=== PATIENT | male | born 1965 | race Caucasian/White ===

== ENCOUNTER 2019-08-28 09:05 | Emergency (ER) | payer BC, OTHER ==
[2019-08-28 09:18] VITALS: BP 135/105; PULSE 88; TEMP 97.5; BMI 29.6
[2019-08-28] MEDS ORDERED: DIPHTH,PERTUSS(ACELL),TET 0.5 ML DISP.SYRIN IM ONE ×2 (10:25→11:03)
--- NOTE | 2019-08-28 10:41 | PDOC ---
History of Present Illness - General Chief Complaint: Injury Stated Complaint: LT HAND INJURY Time Seen by Provider: 08/28/19 09:46 History Source: Patient - History of Present Illness Initial Comments: 08/28/19 10:24 53M w/hx HTN p/w fish hook injury to L 2nd digit. He reports packing to leave for vacation when he accidentally impaled his finger on a clean, barbed fish hook. He attempted to remove the hook himself without success. He does not recall his last tetanus vaccination. Past History - Medical History Allergies/Adverse Reactions: Allergies Allergy/AdvReac Type Severity Reaction Status Date / Time No Known Allergies Allergy Unverified 03/05/15 15:35 Home Medications: Ambulatory Orders Cephalexin [Keflex] 500 mg PO BID 7 Days #14 capsule 08/28/19 - Psycho-Social/Smoking History Smoking History: Never smoked Have you smoked in the past 12 months: No - Substance Abuse Hx (Audit-C & DAST Scrn) How often the patient has a drink containing alcohol: Never Score: In Men: 4 or > Positive; In Women: 3 or > Positive: 0 Screen Result (Pos requires Nsg. Audit-10AR): Negative In the last yr the pt used illegal drug/Rx for NonMed reason: No Score: Yes response is considered Positive: 0 Screen Result (Positive result requires Nsg. DAST-10): Negative *Physical Exam - Vital Signs Last Vital Signs Temp Pulse Resp BP Pulse Ox 97.5 F L 88 16 135/105 H 97 08/28/19 09:09 08/28/19 09:09 08/28/19 09:09 08/28/19 09:09 08/28/19 09:09 Discharge - Discharge Information Problems reviewed: Yes Clinical Impression/Diagnosis: Puncture wound Condition: Stable Disposition: HOME - Admission No - Additional Discharge Information Prescriptions: Cephalexin [Keflex] 500 mg PO BID 7 Days #14 capsule - Follow up/Referral Referrals: Alberta Garcia [Primary Care Provider] - - Patient Discharge Instructions Patient Printed Discharge Instructions: DI for Puncture Wound Additional Instructions: You were seen in the ER for a wound to the hand. The fish hook was removed. We are prescribing you antibiotics, please take the full course as directed - two times every day, for seven days. Keep the wound dry for 24 hours. Return to the ER if you develop high fevers, chills, weakness, confusion, chest pain, or trouble breathing. - Post Discharge Activity
--- NOTE | 2019-08-28 12:21 | PDOC ---
Documentation entered by Dimitry Merchant SCRIBE, acting as scribe for Adi Muro MD. Adi Muro MD: This documentation has been prepared by the Mayur maldonado Alexis, SCRIBE, under my direction and personally reviewed by me in its entirety. I confirm that the documentation accurately reflects all work, treatment, procedures, and medical decision making performed by me. Attending Attestation - Resident Resident Name: Charles Mcdonough - ED Attending Attestation I have performed the following: I have examined & evaluated the patient, The case was reviewed & discussed with the resident, I agree w/resident's findings & plan, Exceptions are as noted - HPI HPI: 08/28/19 10:24 The patient is a 53 year old male with a significant past medical history of HTN who presents to the ED for evaluation of injury to the middle finger of the left hand. Patient reports that while reaching into his bag while packing for a fishing trip, a fish hook got stuck in his middle finger. He tried to remove the hook by pulling it out but was unable to so he came to the ED. Allergies: NKA Social history: No reported. PCP: Dr. Alberta Garcia - Physicial Exam PE: 08/28/19 10:25 Agree with resident exam - Medical Decision Making 08/28/19 12:22 53 M with fish hook in finger. Digital nerve block performed Fish hook advanced through, irena cut off with ring cutter Fish hook removed without problem Tdap administered Wound irrigated Will initiate abx ppx Pt is well appearing, with normal vitals. Clinically stable for DC at this time. I discussed the physical exam findings, ancillary test results and final diagnoses with the patient. I answered all of the patient's questions. The patient was satisfied with the care received and felt comfortable with the discharge plan and treatment plan. The patient agrees to follow up with the primary care physician within 24-72 hours. Please note this patient was evaluated during the COVID-19 crisis with the [place] esidential Garcia Act Declaration and the [place] governor executive order number 202. He/she was evaluated and clinical decisions were made relative to healthcare system resources as well as clinical picture during a pandemic crisis situation. Discharge - Discharge Information Problems reviewed: Yes Clinical Impression/Diagnosis: Puncture wound, Fish hook injury of finger, Foreign body (FB) in soft tissue Condition: Stable Disposition: HOME - Additional Discharge Information Prescriptions: Cephalexin [Keflex] 500 mg PO BID 7 Days #14 capsule - Follow up/Referral Referrals: Alberta Garcia [Primary Care Provider] - - Patient Discharge Instructions Patient Printed Discharge Instructions: DI for Puncture Wound Additional Instructions: You were seen in the ER for a wound to the hand. The fish hook was removed. We are prescribing you antibiotics, please take the full course as directed - two times every day, for seven days. Keep the wound dry for 24 hours. Return to the ER if you develop high fevers, chills, weakness, confusion, chest pain, or trouble breathing. - Post Discharge Activity
== END 2019-08-28 12:27 | disposition home or self-care (01) ==
LOC: JER 09:05
PROC: 3E0234Z Introduction of Serum, Toxoid and Vaccine into Muscle, Percutaneous Approach (ICD-10-PCS; principal; 2019-08-28)
DX: S61.243A Puncture wound with foreign body of left middle finger without damage to nail, initial encounter (principal); W45.8XXA Other foreign body or object entering through skin, initial encounter
CPT/HCPCS: 90715; 99283-25